=== PATIENT | female | born 1965 | race Caucasian/White ===

== ENCOUNTER 2020-11-21 06:41 | Inpatient (IN) | payer OTHER, SELFPAY ==
[~2020-11-21] VITALS: Ht 154.9 cm; Wt 95.3 kg
[2020-11-21 06:52] VITALS: BP_SYST 132
--- NOTE | 2020-11-21 06:52 | NUR ---
Patient to ER bed 8 to gown for evaluation. Side rails up.
--- NOTE | 2020-11-21 06:53 | NUR ---
Came in ER ambulatory from home this 54 year old female, AAOX4, breathing spontaneously at room air, not in distress noted. With chief complaints of severe abdominal pain since 2AM, History of Hypothyroid on levothyroxin. Vital signs stable.
[2020-11-21] MEDS ORDERED: MORPHINE 4 MG INJ. 4 MG/ML VIAL IVP ONE (07:00)
[2020-11-21] MEDS ORDERED: ONDANSETRON HCL 4 MG/2 ML VIAL IVP ONE ×2 (07:00→09:30)
--- NOTE | 2020-11-21 07:01 | NUR ---
Dr. De Dios at bedside for patient evaluation.
--- NOTE | 2020-11-21 07:02 | NUR ---
# 20 gauge angiocath placed to right metacarpal vein. Use of asceptic technique. Opsite placed over site. Blood return noted. Flushed with 10 cc of normal saline. No evidence of infiltration noted. Patient tolerated well.
--- NOTE | 2020-11-21 07:05 | NUR ---
electronic calibration technician at bedside, blood drawn
--- NOTE | 2020-11-21 07:08 | NUR ---
Medication given as ordered, health teaching provided and verbalized understanding
--- NOTE | 2020-11-21 07:16 | NUR ---
To CT scan department per wheelchair in stable condition accompanied by behavioral technician
--- NOTE | 2020-11-21 07:17 | NUR ---
Endorsed to day shift DOROTHY Singer in stable condition for continuity of care
[2020-11-21 07:30] LABS: BASOPHILS # (AUTO) 0.1 K/uL (0.0-0.2); BASOPHILS % (AUTO) 0.3 % (0.0-2.0); EOSINOPHILS # (AUTO) 0.3 K/uL (0.0-0.4); EOSINOPHILS % (AUTO) 1.8 % (0.0-4.0); HEMATOCRIT 43.5 % (36-48); HEMOGLOBIN 14.6 g/dL (12.0-16.0); LYMPHOCYTES # (AUTO) 1.6 K/uL (1.0-5.5); LYMPHOCYTES % (AUTO) 9.1 % (20.5-51.5); MEAN CORPUSCULAR HEMOGLOBIN 30 pg (27-31); MEAN CORPUSCULAR HGB CONC 34 % (32-36); MEAN CORPUSCULAR VOLUME 89 fL (79.0-98.0); MONOCYTES # (AUTO) 0.8 K/uL (0.0-1.0); MONOCYTES % (AUTO) 4.5 % (1.7-9.3); NEUTROPHILS # (AUTO) 14.8 K/uL (1.8-7.7); NEUTROPHILS % (AUTO) 84.3 % (40.0-70.0); PLATELET COUNT (AUTO) 305 K/uL (130-430); RED BLOOD CELL COUNT(AUTO) 4.87 MIL/uL (4.2-6.2); RED CELL DISTRIBUTION WIDTH 12.7 % (9.0-15.0); WHITE BLOOD COUNT (AUTO) 17.6 K/uL (4.8-10.8)
[2020-11-21 07:43] LABS: CALCIUM 9.6 mg/dL (8.4-11.0); CREATININE 0.91 mg/dL (0.55-1.30); POTASSIUM 3.7 mmol/L (3.5-5.1)
[2020-11-21 07:45] LABS: PROTHROMBIN TIME 10.1 SECS (9.5-12.5)
[2020-11-21 07:48] LABS: ALBUMIN 4.2 g/dL (3.4-4.8); TOTAL BILIRUBIN 0.4 mg/dL (0.0-1.0)
[2020-11-21 07:54] LABS: C-REACTIVE PROTEIN QUANT 0.5 mg/dL (0-0.5)
[2020-11-21 08:04] LABS: BILIRUBIN,URINE NEGATIVE (NEGATIVE); BLOOD, URINE 2+ (NEGATIVE); CLARITY/URINE CLEAR (CLEAR); COLOR,URINE YELLOW (YELLOW); GLUCOSE,URINE NEGATIVE (NEGATIVE); KETONES,URINE 1+ (NEGATIVE); LEUKOCYTE ESTERASE ,URINE TRACE (NEGATIVE); NITRITE, URINE NEGATIVE (NEGATIVE); PH,URINE 6.5 (5.0-8.0); PROTEIN URINE NEGATIVE (NEGATIVE); UROBILINOGEN,URINE 0.2 (0.2-1.0)
[2020-11-21 08:23] LABS: BACTERIA,URINE RARE /HPF (None Seen)
[2020-11-21] MEDS ORDERED: NACL 0.9% 1,000 ML IV ONE (08:45)
[2020-11-21] MEDS ORDERED: cefTRIAXone 1 GM VIAL ONE (08:45)
[2020-11-21] MEDS ORDERED: cefTRIAXone 1 GM in D5W 50 ML IV ONE (08:45)
[2020-11-21] MEDS ORDERED: LEVO100T9 PO (08:54)
--- NOTE | 2020-11-21 08:57 | NUR ---
Admit orders received from Dr. Sanon, pt to go to med-surg, Charge nurse Katey will call us back for bed.
[2020-11-21] MEDS ORDERED: KETOROLAC TROMETHAMINE 30 MG VIAL ONE (10:09)
[2020-11-21] MEDS ORDERED: KETOROLAC TROMETHAMINE 30 MG VIAL IVP ONE (10:15)
--- NOTE | 2020-11-21 11:00 | NUR ---
Patient will be admitted to care of Dr. Sanon. Admitted to [facility] unit. Will go to room 130B. Belongings list completed. Complete and up to date summary report printed. SBAR report to be given at bedside with opportunity for questions.
--- NOTE | 2020-11-21 11:02 | NUR ---
RECEIVED PATIENT FROM ER VIA [facility]. ON ROOM AIR BREATHING EVEN AND UNLABORED NO SIGN OF DISTRESS. LAST OF IV BOLUS FROM ER FLOWING TO RIGHT HAND #20. VITAL SIGNS WNL. SAFETY PRECAUTIONS IN PLACE. WILL CONTINUE TO MONITOR.
--- NOTE | 2020-11-21 11:10 | NUR ---
CONSULTATION PAGED REASON FOR CONSULTATION:GASTROENTRITIS WAS CONSULT CALLED?Y PERSON WHO WAS NOTIFIED:MARIA ELENA CONSULTING PHYSICIAN:JOSH OCAMPO ALARM OPERATOR SPECIALTY:GI ALARM OPERATOR PHONE NUMBER:[phone] REQUESTING PHYSICIAN:ADELFO JUNG
[2020-11-21 12:02] VITALS: BP_SYST 115
[2020-11-21] MEDS: D5/0.45 NS 1,000 ML IV SCH ×2 (12:38→20:51)
[2020-11-21] MEDS ORDERED: HYDROcodone/ACETAMIN 10-325 MG TAB PO PRN (12:45)
[2020-11-21] MEDS ORDERED: ONDANSETRON HCL 4 MG/2 ML VIAL IVP PRN (12:45)
[2020-11-21] MEDS ORDERED: LORazepam 2 MG/ML VIAL IVP PRN (12:45)
[2020-11-21] MEDS ORDERED: NALOXONE HCL 0.4 MG/ML AMP (NARCAN) IVP PRN ×2 (12:45)
[2020-11-21] MEDS ORDERED: ACETAMINOPHEN 325 MG TABLET PO PRN (12:45)
--- NOTE | 2020-11-21 13:11 | NUR ---
CONSULTATION PAGED REASON FOR CONSULTATION:LEUKOCYTOSIS WAS CONSULT CALLED?Y PERSON WHO WAS NOTIFIED:JAZMYN CONSULTING PHYSICIAN:MARISSA WARD SENIOR TECHNICAL SUPPORT ANALYST SPECIALTY:INFECTIOUS DISEASE SENIOR TECHNICAL SUPPORT ANALYST PHONE NUMBER:[phone] REQUESTING PHYSICIAN:ADELFO JUNG
[2020-11-21] MEDS ORDERED: metroNIDAZOLE 500 mg/NS 100 ML IV ONE (15:15)
[2020-11-21 15:31] VITALS: BP_SYST 118
[2020-11-21] MEDS ORDERED: CEFTRIAXONE SOD 1 GM/ D5W 50 ML IV ONE ×2 (16:00)
--- NOTE | 2020-11-21 18:45 | NUR ---
PATIENT RESTING IN BED WATCHING PHONE. NOT DISTRESS NOTED. SAFETY PRECAUTIONS IN PLACE. WILL ENDORSE TO NEXT SHIFT
--- NOTE | 2020-11-21 19:15 | NUR ---
OPENING NOTE PATIENT IN BED, AWAKE, NO S/S OF ACUTE DISTRESS NOTED. BREATHING EVEN AND UNLABORED. IVF INFUSING WELL. IV SITE PATENT. CALL LIGHT WITH PATIENT. BED IS LOCKED AND AT LOWEST POSITION. WILL CONTINUE TO MONITOR.
[2020-11-21 20:00] VITALS: BP_SYST 121
[2020-11-21] MEDS: HYDROcodone/ACETAMIN 5-325 MG TAB (NORCO/ VICODIN) PO PRN (20:51)
[2020-11-21] MEDS: metroNIDAZOLE 500 mg/NS 100 ML IV SCH (21:39)
[2020-11-22] VITALS: BP_SYST 117
[2020-11-22] MEDS: D5/0.45 NS 1,000 ML IV SCH ×2 (05:00→19:06)
[2020-11-22] MEDS: metroNIDAZOLE 500 mg/NS 100 ML IV SCH ×3 (05:26→21:07)
[2020-11-22 06:31] LABS: BASOPHILS % (AUTO) 0.4 % (0.0-2.0); EOSINOPHILS # (AUTO) 0.4 K/uL (0.0-0.4); EOSINOPHILS % (AUTO) 8.2 % (0.0-4.0); HEMATOCRIT 38.2 % (36-48); HEMOGLOBIN 12.5 g/dL (12.0-16.0); LYMPHOCYTES % (AUTO) 39.7 % (20.5-51.5); MEAN CORPUSCULAR HEMOGLOBIN 30 pg (27-31); MEAN CORPUSCULAR HGB CONC 33 % (32-36); MEAN CORPUSCULAR VOLUME 91 fL (79.0-98.0); MONOCYTES # (AUTO) 0.4 K/uL (0.0-1.0); MONOCYTES % (AUTO) 8.4 % (1.7-9.3); NEUTROPHILS # (AUTO) 2.2 K/uL (1.8-7.7); NEUTROPHILS % (AUTO) 43.3 % (40.0-70.0); PLATELET COUNT (AUTO) 230 K/uL (130-430); WHITE BLOOD COUNT (AUTO) 5.1 K/uL (4.8-10.8)
--- NOTE | 2020-11-22 06:51 | NUR ---
CLOSING NOTE PATIENT IN BED, RESTING. NO S/S OF ACUTE DISTRESS NOTED, PATIENT DENIES PAIN. BREATHING EVEN AND UNLABORED. IVF INFUSING WELL. IV SITE PATENT. ALL NEEDS MET THROUGHOUT SHIFT. FALL AND SAFETY PRECAUTIONS MAINTAINED THROUGHOUT SHIFT. WILL CONTINUE TO MONITOR UNTIL PATIENT CARE IS ENDORSED TO ONCOMING DAYSHIFT NURSE.
[2020-11-22 06:52] LABS: ALBUMIN 3.1 g/dL (3.4-4.8); CALCIUM 8.5 mg/dL (8.4-11.0); CREATININE 0.7 mg/dL (0.55-1.30); PHOSPHORUS 4.4 mg/dL (2.7-4.5); POTASSIUM 3.8 mmol/L (3.5-5.1); TOTAL BILIRUBIN 0.3 mg/dL (0.0-1.0)
[2020-11-22 08:00] VITALS: BP_SYST 117
[2020-11-22] MEDS: LEVOTHYROXINE SODIUM 0.1 MG TABLET PO SCH (08:19)
[2020-11-22] MEDS ORDERED: DOCUSATE SODIUM 100 MG CAPSULE PO PRN (08:45)
[2020-11-22] MEDS: POLYETHYLENE GLYCOL 3350, 17 GM/ POWD.PACK PO SCH (10:02)
[2020-11-22 12:47] VITALS: BP_SYST 105
[2020-11-22 17:38] VITALS: BP_SYST 129
--- NOTE | 2020-11-22 18:45 | NUR ---
PATIENT IN BED, RESTING. NO S/S OF ACUTE DISTRESS NOTED, PATIENT DENIES PAIN. BREATHING EVEN AND UNLABORED. IVF INFUSING WELL. IV SITE PATENT. ALL NEEDS MET THROUGHOUT SHIFT. FALL AND SAFETY PRECAUTIONS MAINTAINED THROUGHOUT SHIFT. WILL CONTINUE TO MONITOR UNTIL PATIENT CARE IS ENDORSED TO ONCOMING NURSE
--- NOTE | 2020-11-22 19:15 | NUR ---
OPENING NOTE PATIENT ON CHAIR AT BEDSIDE, WATCHING ON HER IPAD, NO S/S OF ACUTE DISTRESS NOTED. BREATHING EVEN AND UNLABORED. IVF INFUSING WELL. IV SITE PATENT, NO SIGNS OF INFILTRATION OR INFECTION. CALL LIGHT WITH PATIENT. BED IS LOCKED AND AT LOWEST POSITION. WILL CONTINUE TO MONITOR.
[2020-11-22 20:00] VITALS: BP_SYST 122
[2020-11-22] MEDS: HYDROcodone/ACETAMIN 5-325 MG TAB (NORCO/ VICODIN) PO PRN (21:06)
[2020-11-23 00:37] VITALS: BP_SYST 119
[2020-11-23] MEDS: D5/0.45 NS 1,000 ML IV SCH ×2 (01:00→09:51)
[2020-11-23] MEDS: metroNIDAZOLE 500 mg/NS 100 ML IV SCH ×2 (05:12→14:00)
[2020-11-23 06:29] LABS: BASOPHILS % (AUTO) 0.5 % (0.0-2.0); EOSINOPHILS # (AUTO) 0.3 K/uL (0.0-0.4); EOSINOPHILS % (AUTO) 6.1 % (0.0-4.0); HEMATOCRIT 40.3 % (36-48); HEMOGLOBIN 13.1 g/dL (12.0-16.0); LYMPHOCYTES # (AUTO) 1.9 K/uL (1.0-5.5); LYMPHOCYTES % (AUTO) 35.4 % (20.5-51.5); MEAN CORPUSCULAR HEMOGLOBIN 30 pg (27-31); MEAN CORPUSCULAR HGB CONC 33 % (32-36); MEAN CORPUSCULAR VOLUME 92 fL (79.0-98.0); MONOCYTES # (AUTO) 0.4 K/uL (0.0-1.0); MONOCYTES % (AUTO) 8.3 % (1.7-9.3); NEUTROPHILS # (AUTO) 2.6 K/uL (1.8-7.7); NEUTROPHILS % (AUTO) 49.7 % (40.0-70.0); PLATELET COUNT (AUTO) 255 K/uL (130-430); RED BLOOD CELL COUNT(AUTO) 4.41 MIL/uL (4.2-6.2); RED CELL DISTRIBUTION WIDTH 12.8 % (9.0-15.0); WHITE BLOOD COUNT (AUTO) 5.3 K/uL (4.8-10.8)
--- NOTE | 2020-11-23 06:36 | NUR ---
CLOSING NOTE PATIENT IN BED, RESTING. NO S/S OF ACUTE DISTRESS NOTED. BREATHING EVEN AND UNLABORED. IVF INFUSING WELL, IV SITE PATENT, NO SIGNS OF INFILTRATION OR INFECTION NOTED. ALL NEEDS MET THROUGHOUT SHIFT. FALL AND SAFETY PRECAUTIONS MAINTAINED THROUGHOUT SHIFT. WILL CONTINUE TO MONITOR UNTIL PATIENT CARE IS ENDORSED TO ONCOMING DAYSHIFT NURSE.
[2020-11-23 06:43] LABS: ALBUMIN 3.6 g/dL (3.4-4.8); CALCIUM 9.1 mg/dL (8.4-11.0); CREATININE 0.69 mg/dL (0.55-1.30); POTASSIUM 3.6 mmol/L (3.5-5.1); TOTAL BILIRUBIN 0.3 mg/dL (0.0-1.0)
[2020-11-23 08:00] VITALS: BP_SYST 119
[2020-11-23 08:07] LABS: C-REACTIVE PROTEIN QUANT 0.5 mg/dL (0-0.5)
[2020-11-23] MEDS ORDERED: MAGNESIUM CITRATE 300 ML ORAL SOLUTION PO ONE (08:45)
[2020-11-23] MEDS: POLYETHYLENE GLYCOL 3350, 17 GM/ POWD.PACK PO SCH (09:28)
[2020-11-23] MEDS: LEVOTHYROXINE SODIUM 0.1 MG TABLET PO SCH (09:28)
[2020-11-23] MEDS ORDERED: LEVO500T89 PO (09:55)
[2020-11-23] MEDS ORDERED: METR500T PO (09:55)
[2020-11-23 09:59] LABS: ERYTHROCYTE SEDIMENTATION RATE 5 MM/HR (0-20)
[2020-11-23 12:16] VITALS: BP_SYST 119
--- NOTE | 2020-11-23 12:49 | NUR ---
Dietitian Recommendations * Recommend: continue Mechanical soft Gluten free diet as ordered. * Recommend: provide prune juice. Please see Nutritional Assessment for details JOSE CARLOS FANG
--- NOTE | 2020-11-23 14:38 | NUR ---
PT ATE LUNCH SERVED , ATE ABOUT 75%, PT DENIES PAIN, N/V DIARRHEA AFTER EATING.
[2020-11-23 15:27] VITALS: BP_SYST 119
--- NOTE | 2020-11-23 15:58 | NUR ---
D/C Patient Patient given medication reconciliation form and D/C instructions. Exit Care provided. Patient verbalized understanding. MD discussed with patient the results and treatment provided. Ambulatory with steady gait for discharge to home. Patient in stable condition, ID band removed. IV catheter removed, intact and dressing applied, no active bleeding. eRx of LEVAQUIN, FLAGYL given. Patient educated on pain management. All belongings sent with patient.
[2020-11-23] MEDS ORDERED: BISACODYL 5 MG TABLET.DR (DULCOLAX) PO ONE (17:00)
[2020-11-23] MEDS ORDERED: POLYETHYLENE GLYCOL 3350, 17 GM/ POWD.PACK PO ONE (18:00)
[2020-11-24] MEDS ORDERED: POLYETHYLENE GLYCOL 3350, 17 GM/ POWD.PACK PO ONE (03:00)
[2020-11-24 09:57] VITALS: BP_SYST 145
== END 2020-11-23 15:58 | disposition home or self-care (01) | DRG 872 ==
LOC: SED 06:41 → SMU 09:03
PROVIDERS: ADMIT Preventive Medicine Preventive Medicine/Occupational Environmental Medicine; ATTEND Internal Medicine Hospice and Palliative Medicine
DX: A41.9 Sepsis, unspecified organism (principal); E87.2 Acidosis; E44.0 Moderate protein-calorie malnutrition; E87.0 Hyperosmolality and hypernatremia; N18.9 Chronic kidney disease, unspecified; K59.00 Constipation, unspecified; E66.01 Morbid (severe) obesity due to excess calories; A05.9 Bacterial foodborne intoxication, unspecified; Z68.39 Body mass index [BMI] 39.0-39.9, adult; Z20.822 Contact with and (suspected) exposure to COVID-19; Z79.899 Other long term (current) drug therapy
CPT/HCPCS: 36415; 71045; 76376; 80053; 81000; 82150; 83605; 83615; 83690; 83735; 84100; 84484; 84703; 85025; 85610-TC; 85651-TC; 85730-TC; 86140; 87040-TC; 96365; 96375; 96376; 99285; J0696; J1885; J2270; J2405; J3490; J7060

== ENCOUNTER 2022-06-18 12:36 | Emergency (ER) | payer BC, OTHER ==
[~2022-06-18] VITALS: Ht 154.9 cm; Wt 90.7 kg
[~2022-06-18 12:36] MED LIST: LEVO-62 PO; LEVO100T9 PO; METR500T PO
[2022-06-18 13:00] VITALS: BP_SYST 151
[2022-06-18 14:01] VITALS: BP_SYST 181
[2022-06-18] MEDS ORDERED: ACETAMINOPHEN 325 MG TABLET PO ONE (14:30)
[2022-06-18] MEDS ORDERED: predniSONE 20 MG TABLET PO ONE (14:30)
[2022-06-18] MEDS ORDERED: LIDOCAINE PATCH 5% 1 EA TP ONE (14:30)
[2022-06-18] MEDS ORDERED: KETOROLAC TROMETHAMINE 15 MG VIAL IM ONE (14:30)
[2022-06-18] MEDS ORDERED: methocarbamoL 500 MG TABLET PO ONE (14:30)
[2022-06-18] MEDS ORDERED: IBUP-1969 PO (16:07)
[2022-06-18] MEDS ORDERED: PRED20TA PO (16:07)
[2022-06-18] MEDS ORDERED: LIDO1ADH77 TD (16:07)
[2022-06-18] MEDS ORDERED: METH-799 PO (16:07)
[2022-06-18 16:20] VITALS: BP_SYST 138
== END 2022-06-18 16:20 | disposition home or self-care (01) ==
LOC: SED 12:36
DX: M54.16 Radiculopathy, lumbar region (principal); M54.50 Low back pain, unspecified; M79.605 Pain in left leg; Z79.899 Other long term (current) drug therapy
CPT/HCPCS: 99284; 96372; J7512; J1885